=== PATIENT | male | born 1985 | race Caucasian/White ===

== ENCOUNTER 2017-03-18 11:38 | Emergency (ER) | payer MEDICAID, OTHER ==
[~2017-03-18] VITALS: Ht 175.3 cm; Wt 123.2 kg
[2017-03-18 11:39] VITALS: BP 122/91; PULSE 71; RESP 16; O2SAT 97
[2017-03-18] MEDS ORDERED: MONT10TA23 PO (12:07)
[2017-03-18] MEDS ORDERED: OXCA600T3 PO ×2 (12:07→12:55)
[2017-03-18] MEDS ORDERED: CETI5TAB28 PO (12:07)
[2017-03-18] MEDS ORDERED: DOXY100C2 PO (12:07)
[2017-03-18] MEDS ORDERED: OMEP40CA36 PO ×2 (12:07→12:55)
[2017-03-18] MEDS ORDERED: FLUO40CA PO ×2 (12:07→12:55)
--- NOTE | 2017-03-18 12:51 | ED.REPORT ---
HPI-Medication Refill Date of Service Mar 18, 2017 ED Provider: Jason Ryan PA-C Keith is a 31-year-old male with a history of seizure disorder, depression and emergency department requesting prescriptions for his home medications. Patient has relocated from [place]. He reports coming to the area with prescriptions in hand from his previous providers however due to insurance issues these will not be filled locally. They were told to present to the emergency department to get a prescription from a local provider. They report plans to become established with local insurance and local providers over the coming week. Patient denies current complaints, states his last seizure was 9 months ago. Nursing Notes Stated Complaint: MED REFILL Chief Complaint: General Complaint Nursing Notes Reviewed: Yes Allergies: Coded Allergies: No Known Allergies (Unverified , 03/18/17) Scheduled Cetirizine (Cetirizine) 5 Mg Tablet 5 MG PO HS Cetirizine HCl (Zyrtec) 10 Mg Capsule 10 MG PO HS Doxycycline Hyclate (Doxycycline Hyclate) 100 Mg Capsule 100 MG PO DAILY Doxycycline Hyclate (Doxycycline Hyclate) 100 Mg Tablet 100 MG PO DAILY Fluoxetine (Fluoxetine) 40 Mg Capsule 40 MG PO DAILY Fluoxetine (Fluoxetine) 40 Mg Capsule 40 MG PO DAILY Montelukast (Montelukast) 10 Mg Tablet 10 MG PO QAM Montelukast (Singulair) 10 Mg Tablet 10 MG PO DAILY Omeprazole (Omeprazole) 40 Mg Capsule.dr 40 MG PO DAILY Omeprazole (Omeprazole) 40 Mg Capsule.dr 40 MG PO DAILY Oxcarbazepine (Trileptal) 600 Mg Tablet 600 MG PO BID Oxcarbazepine (Trileptal) 600 Mg Tablet 600 MG PO BID General Time Seen by Provider: 12:24 Chief Complaint Other (needs prescriptions) Past Medical History Past Medical History Seizure disorder, depression, seasonal allergies, asthma, acne, gastritis Review of Systems Review of Systems Note: General: Denies fever, chills, malaise. HEENT: Denies congestion, headache, sore throat. Respiratory: Denies dyspnea, cough, shortness of breath, wheezing. Cardiovascular: Denies chest pain, palpitations. Gastrointestinal: Denies vomiting, diarrhea, abdominal pain. Genitourinary: Denies frequency, urgency, dysuria, hematuria. Otherwise as noted in HPI. Physical Exam General: Well appearing, well developed, well nourished, no acute distress. Head: Atraumatic, normocephalic. Eyes: No scleral icterus or injection. No discharge. Vision grossly intact. ENT: Voice clear, hearing grossly intact. Respiratory: Regular rate and rhythm. Breath sounds present, clear to auscultation and equal bilaterally. No respiratory distress. No increased work of breathing, speaks in complete sentences. Cardiovascular: Regular rate and rhythm, without murmur, gallop or rub. No pedal edema. Gastrointestinal: Abdomen flat and non-tender without guarding or rebound. Bowel sounds normoactive. Skin: Warm and dry. Neurological: Normal gait, Romberg, negative pronator drift. Grossly nonfocal. Psychological: Alert and oriented. Speech appropriate, linear and logical. Behavior appropriate. Initial Vital Signs Vital Signs (First) Date Time Temp Pulse Resp B/P Pulse Ox O2 Delivery O2 Flow Rate FiO2 03/18/17 11:39 36.8 71 16 122/91 97 Normal Re-Evaluation & MDM Med Decision/Clinical Course History of seizure disorder, depression. Emergency department for medication refills. Patient recently relocated from [place] and having difficulty getting prescriptions refilled due to assurance issues. Requesting refill prescriptions of his home medications. Patient states he does not need refills of his inhalers. Physical examination is benign, vitals normal. I find this be a reasonable request, patient is stable on his home medications. Patient has a plan in place to establish a local insurance and providers. None of his medications are high risk. I provided prescriptions with up to 3 refills and a primary care referral. Advised regarding primary care follow-up, provided emergency return precautions. Patient verbalized understanding of, and consent to, the plan. Patient Discharge & Departure Impression: Primary Impression: Medication refill Disposition: Home Discharge Condition All VS Reviewed: Yes Condition: Stable Additional Instructions: Welcome to [place]! I am happy to provide you with prescriptions for your home medications. I will provide her with a 3 month supply. Follow-through on your plan see become established with a local insurance and finding local providers as soon as possible. I provided a referral to a primary care provider in [place]. Return to the emergency department for any new or worsening symptoms. Referrals: Tye Worthington MD [facility] Provider for [facility]: Tyler Nguyen MD, Seth PA-C Mar 18, 2017 12:51
[2017-03-18] MEDS ORDERED: DOXY100T2 PO (12:55)
[2017-03-18] MEDS ORDERED: MONT10TA20 PO (12:55)
[2017-03-18] MEDS ORDERED: CETI10CA PO (12:55)
[2017-03-18 13:13] VITALS: BP 122/91; PULSE 71; RESP 16; O2SAT 97
== END 2017-03-18 13:14 | disposition home or self-care (01) ==
LOC: SED 11:38
DX: Z76.0 Encounter for issue of repeat prescription (principal); R56.9 Unspecified convulsions; J45.909 Unspecified asthma, uncomplicated; F32.9 Major depressive disorder, single episode, unspecified; Z79.2 Long term (current) use of antibiotics